=== PATIENT | male | born 1965 | race Caucasian/White ===

== ENCOUNTER 2018-09-25 12:37 | Day surgery (SDC) | payer OTHER ==
[2018-09-25] MEDS ORDERED: PROPOFOL 40 ML (16:23)
== END 2018-09-25 17:39 | disposition home or self-care (01) ==
LOC: GIL 12:37
DX: Z12.11 Encounter for screening for malignant neoplasm of colon (principal); K64.8 Other hemorrhoids
CPT/HCPCS: 45378